=== PATIENT | female | born 1970 | race African-American/Black ===

== ENCOUNTER 2020-07-26 10:45 | Outpatient (REF) | payer OTHER, SELFPAY ==
--- NOTE | 2020-07-26 10:51 | MM_ITS ---
EXAMINATION: MM SCREENING DIGITAL BREAST TOMOSYNTHESIS, BILATERAL CLINICAL INFORMATION: Screening. Asymptomatic. The lifetime risk of breast cancer based on the Tyrer-Cuzick Model is 16%. COMPARISON: Mammography: 09/25/2018, 08/24/2017, 04/12/2014 TECHNIQUE: Digital breast tomosynthesis is performed in both the craniocaudal and mediolateral oblique views along with computer-aided detection (CAD). Synthesized 2D images are generated from the tomosynthesis. Additional right MLO view is provided. FINDINGS: The breasts are heterogeneously dense, which may obscure small masses (ACR BI-RADS breast composition Category c). There are no significant masses, abnormal calcifications, or other abnormalities. Parenchymal pattern is similar to prior studies. No significant changes. MM/MM tomosynthesis screening BI IMPRESSION: No mammographic evidence of malignancy. ASSESSMENT: BI-RADS 1: Negative RECOMMENDATION: Routine annual mammography screening. This patient's information was entered into a reminder system with a target due date for their next mammogram.
== END 2020-07-26 10:46 | disposition home or self-care (01) ==
LOC: HO.MAMMO 10:45
PROVIDERS: PCP Internal Medicine; Visit Provider Internal Medicine
DX: Z12.31 Encounter for screening mammogram for malignant neoplasm of breast (principal)
CPT/HCPCS: 77063; 77067

== ENCOUNTER 2020-08-17 13:23 | Outpatient (REF) | payer OTHER, SELFPAY ==
[2020-08-17 14:54] LABS: MANUAL DIFF FLAG NO
[2020-08-17 14:58] LABS: Basophils Percent Auto 0.8 % (0-2); Eosinophils Absolute Auto 0.1 X10*3/uL (0.0-0.4); Eosinophils Percent Auto 1.4 % (0-4); Hematocrit 33.7 % (37-47); Hemoglobin 9.9 g/dl (12.0-16.0); Imm Gran Abs Auto 0.01 X10*3/uL (0.00-0.03); Imm Gran Pct Auto 0.2 % (0.0-0.4); Lymphocytes Percent Auto 39.8 % (20-40); Mean Corpuscular HGB Conc 29.4 g/dl (31.0-35.0); Mean Corpuscular Hemoglobin 25.5 pg (27.0-33.0); Mean Corpuscular Volume 86.9 fL (80-98); Mean Platelet Volume 10.4 fL (9.4-12.3); Monocytes Absolute Auto 0.5 X10*3/uL (0.1-1.2); Monocytes Percent Auto 9.9 % (2-11); Neutrophils Absolute Auto 2.4 X10*3/uL (2.0-8.3); Neutrophils Percent Auto 47.9 % (45-73); Platelet Count 270 X10*3/uL (160-400); Red Blood Count 3.88 X10*6/uL (4.20-5.50); Red Cell Distribution Width 16.3 % (11.0-16.0)
[2020-08-17 15:22] LABS: Alanine Aminotransferase 20 U/L (0-31); Albumin Level 3.9 g/dL (3.5-5.0); Alkaline Phosphatase 91 U/L (39-117); Anion Gap 13 (12-20); Aspartate Amino Transferase 20 U/L (5-31); Bilirubin Total 0.4 mg/dL (0.0-1.0); Blood Urea Nitrogen 9 mg/dL (9-16); Carbon Dioxide 27 mmol/L (22-29); Chloride 105 mmol/L (96-108); Cholesterol 172 mg/dL; Estimated Glomerular Filt Rate > 60; Glucose Random 81 mg/dL (60-115); HDL Cholesterol 50 mg/dL; LDL Cholesterol Calculated 112 mg/dl; Potassium 4.7 mmol/L (3.3-5.1); Sodium 140 mmol/L (135-145); Total Protein 7.7 g/dL (6.5-8.0); Triglycerides 51 mg/dL
[2020-08-17 15:45] LABS: Thyroid Stimulating Hormone 0.74 uIU/mL (0.32-4.0)
== END 2020-08-17 13:24 | disposition home or self-care (01) ==
LOC: HO.LAB 13:23
PROVIDERS: PCP Internal Medicine; Visit Provider Internal Medicine
DX: Z00.01 Encounter for general adult medical examination with abnormal findings (principal); D25.1 Intramural leiomyoma of uterus; D50.9 Iron deficiency anemia, unspecified; Z68.34 Body mass index [BMI] 34.0-34.9, adult
CPT/HCPCS: 36415; 80053; 80061; 84443; 85025

== ENCOUNTER 2020-10-03 08:24 | Day surgery (SDC) | payer OTHER, SELFPAY ==
[2020-09-26 13:43] VITALS: BMI 33.5
--- NOTE | 2020-10-02 08:23 | P.CONAN_ITS ---
Documented by User: Mel Moura 10/02/20 08:24 HPI - Anesthesia Eval Consult details Narrative: 49yo F for Colonoscopy [facility] Past Medical History Medical History Anemia Surgical History Surgical History (Updated 10/03/20 @ 09:18 by Sena Ladd) H/O laparoscopy History of myomectomy Hx of tonsillectomy Social History Social History Are you a primary urgent care physician assistant to a significant other at home: No Do you presently have visiting nurse or other home services: No Smoking Status: Never smoker Use of substances other than those prescribed or required for medical reasons: No Have you been hit, kicked, punched, or otherwise hurt by someone within the past year? If so, by whom?: No Advance Directives: No Advance Directives Information Provided: No Advance Directives on File: No Recently lost weight without trying: No Meds Allergies Allergy/AdvReac Type Severity Reaction Status Date / Time No Known Allergies Allergy Unverified 09/26/20 13:41 Home Medications Medication Instructions Recorded Confirmed Last Taken Type ferrous sulfate 1 tab PO DAILY 09/26/20 09/26/20 Unknown History Exam Exam Date and Time: October 02, 2020 08 Height,Weight and Vital Signs: Height 5 ft 4 in Weight 88.451 kg Pertinent Lab Results Pertinent Lab Results: Laboratory Tests 08/17/20 08/17/20 14:07 14:07 WBC 5.0 Hgb 9.9 L Hct 33.7 L Plt Count 270 Sodium 140 Potassium 4.7 Chloride 105 Carbon Dioxide 27 BUN 9 Creatinine 0.67 Assessment and Plan Assessment Anesthesia Assessment: Chart Reviewed Documented by User: Sena Ladd 10/03/20 09:27 [facility] Past Medical History Medical History Anemia Family History Family history of problems with anesthesia: No Surgical History Surgical History (Updated 10/03/20 @ 09:18 by Sena Ladd) H/O laparoscopy History of myomectomy Hx of tonsillectomy History of Problems with Anesthesia: Yes (PONV) Social History Social History Are you a primary urgent care physician assistant to a significant other at home: No Do you presently have visiting nurse or other home services: No Smoking Status: Never smoker Use of substances other than those prescribed or required for medical reasons: No Have you been hit, kicked, punched, or otherwise hurt by someone within the past year? If so, by whom?: No Advance Directives: No Advance Directives Information Provided: No Advance Directives on File: No Recently lost weight without trying: No Meds Allergies Allergy/AdvReac Type Severity Reaction Status Date / Time No Known Allergies Allergy Unverified 09/26/20 13:41 Home Medications Medication Instructions Recorded Confirmed Last Taken Type ferrous sulfate 1 tab PO DAILY 09/26/20 09/26/20 Unknown History Exam Height,Weight and Vital Signs: Vital Signs Temp Pulse Resp BP Pulse Ox 10/03/20 09:17 97.3 F 77 15 125/90 H 99 Airway Mallampati Class: II TM Dist: >3cm Neck ROM: Full Heart: RRR Lungs: CTAB Assessment and Plan Assessment Anesthesia Assessment: Anesthesia Plan Discussed and Chart Reviewed Final Anesthetic Review NPO: Yes ASA Class: II Final Preanesthetic Review: No Changes in Pt Med Stat, Meds/Allgs Chart Reviewed, Consent Obtained/Reviewed and Anes Risks/Benef Reviewed Patient Risk: Low Procedure Risk: Low Assessment/Block/Sedation in SS: Assess/Block/Sedation-SS Anesthetic Plan Anesthetic Plan: MAC: Disposition: Standard PACU
[2020-10-03 09:11] VITALS: BMI 32.2
[2020-10-03 09:17] VITALS: BP 125/90; PULSE 77; RESP 15; TEMP 36.3; O2SAT 99
[2020-10-03] MEDS: Lactated Ringers 1,000 ML 100 ML IVCONT (09:20)
[2020-10-03 10:54] VITALS: BP 110/77; PULSE 74; RESP 14; TEMP 35.8; O2SAT 99
--- NOTE | 2020-10-03 10:54 | PM.OP ---
Brief Operative Note Date of Service: 10/03/20 Pre-op diagnosis: Screening Post-op diagnosis: other (Same, Diverticulosis, Internal hemorrhoids) Procedure: Colonoscopy to the cecum and TI Surgeon: Max Patel Anesthesia: MAC Estimated blood loss (mL): 0 Pathology: none sent Condition: stable Disposition: PACU
[2020-10-03 11:10] VITALS: BP 120/82; PULSE 65; RESP 16; TEMP 36.1; O2SAT 100
--- NOTE | 2020-10-03 13:48 | OP_ITS ---
SURGEON: Max Patel MD INDICATIONS: The patient presents for evaluation of colorectal cancer screening. Full consent has been obtained from her for this, including risks of bleeding and perforation. PREOPERATIVE DIAGNOSIS: Colorectal cancer screening. POSTOPERATIVE DIAGNOSIS: PROCEDURE PERFORMED: Colonoscopy to cecum and terminal ileum. ESTIMATED BLOOD LOSS: COMPLICATIONS: ANESTHESIA: Monitored anesthesia care. ASSISTANTS: SPECIMENS: POSTOPERATIVE DIAGNOSES: Colorectal cancer screening, mild diverticulosis, small internal hemorrhoids. DESCRIPTION OF PROCEDURE: The patient was placed in the left lateral decubitus position. The digital rectal exam revealed no abnormalities. The Olympus video pediatric colonoscope was entered into the rectum and advanced easily to the cecum. Once in the cecum, I did identify normal-appearing cecal pouch with appendiceal orifice and a normal-appearing ileocecal valve. The terminal ileum was cannulated and appeared normal. The scope was withdrawn back in the colon. The entire cecum and ileocecal valve appeared normal. The scope was slowly withdrawn assessing all mucosal surfaces carefully. Preparation was excellent. I did not visualize any sign of polyps, colitis, nor angiodysplasia. There was a mild amount of sigmoid diverticulosis. In the rectum, scope was retroflexed visualizing internal hemorrhoids, but no other pathology. The rectal mucosa appeared normal. The scope was straightened out and withdrawn from the patient. She tolerated the procedure well and was returned to recovery area in stable condition. IMPRESSION: 1. Mild sigmoid diverticulosis. 2. Internal hemorrhoids. PLAN: Given the patient's negative exam and negative family history, I would recommend a repeat colonoscopy in 10 years for further screening. She was advised to resume her iron today for her anemia. MD ASIA Mensah/AISHA / [phone]
== END 2020-10-03 12:02 | disposition home or self-care (01) ==
PROVIDERS: PCP Internal Medicine; Visit Provider Internal Medicine
PROC: 0DJD8ZZ Inspection of Lower Intestinal Tract, Via Natural or Artificial Opening Endoscopic (ICD-10-PCS; CPT 45378; principal; 2020-10-03 09:30)
DX: Z12.11 Encounter for screening for malignant neoplasm of colon (principal); D50.9 Iron deficiency anemia, unspecified; K57.30 Diverticulosis of large intestine without perforation or abscess without bleeding; K64.8 Other hemorrhoids; Z79.899 Other long term (current) drug therapy
CPT/HCPCS: 45378; J2405; J2765

== ENCOUNTER 2021-01-29 11:18 | Outpatient (REF) | payer OTHER, SELFPAY ==
[2021-01-29 11:41] LABS: MANUAL DIFF FLAG NO
[2021-01-29 11:49] LABS: Basophils Percent Auto 0.9 % (0-2); Eosinophils Absolute Auto 0.1 X10*3/uL (0.0-0.4); Eosinophils Percent Auto 2.3 % (0-4); Hemoglobin 9.8 g/dl (12.0-16.0); Imm Gran Abs Auto 0.01 X10*3/uL (0.00-0.03); Imm Gran Pct Auto 0.3 % (0.0-0.4); Lymphocytes Absolute Auto 1.3 X10*3/uL (1.2-4.9); Lymphocytes Percent Auto 38.3 % (20-40); Mean Corpuscular HGB Conc 29.7 g/dl (31.0-35.0); Mean Corpuscular Hemoglobin 25.7 pg (27.0-33.0); Mean Corpuscular Volume 86.6 fL (80-98); Mean Platelet Volume 10.1 fL (9.4-12.3); Monocytes Absolute Auto 0.4 X10*3/uL (0.1-1.2); Monocytes Percent Auto 10.1 % (2-11); Neutrophils Absolute Auto 1.7 X10*3/uL (2.0-8.3); Neutrophils Percent Auto 48.1 % (45-73); Platelet Count 230 X10*3/uL (160-400); Red Blood Count 3.81 X10*6/uL (4.20-5.50); Red Cell Distribution Width 17.2 % (11.0-16.0); White Blood Count 3.5 X10*3/uL (4.8-10.8)
[2021-01-29 12:41] LABS: Ferritin 6 ng/mL (10-250)
== END 2021-01-29 11:19 | disposition home or self-care (01) ==
LOC: HO.LAB 11:18
PROVIDERS: PCP Internal Medicine; Visit Provider Internal Medicine
DX: Z00.01 Encounter for general adult medical examination with abnormal findings (principal); D25.1 Intramural leiomyoma of uterus; D50.9 Iron deficiency anemia, unspecified
CPT/HCPCS: 36415; 82728; 85025

== ENCOUNTER 2021-08-06 09:42 | Outpatient (REF) | payer OTHER, SELFPAY ==
[2021-08-06 09:59] LABS: MANUAL DIFF FLAG NO
[2021-08-06 10:19] LABS: Basophils Percent Auto 0.4 % (0-2); Eosinophils Absolute Auto 0.1 X10*3/uL (0.0-0.4); Eosinophils Percent Auto 1.8 % (0-4); Hematocrit 36.2 % (37.0-47.0); Hemoglobin 10.5 g/dl (12.0-16.0); Imm Gran Abs Auto 0.01 X10*3/uL (0.00-0.03); Imm Gran Pct Auto 0.2 % (0.0-0.4); Lymphocytes Absolute Auto 1.4 X10*3/uL (1.2-4.9); Lymphocytes Percent Auto 31.5 % (20-40); Mean Corpuscular Volume 86.2 fL (80.0-98.0); Mean Platelet Volume 10.2 fL (9.4-12.3); Monocytes Absolute Auto 0.4 X10*3/uL (0.1-1.2); Monocytes Percent Auto 8.9 % (2-11); Neutrophils Absolute Auto 2.6 x10*3/uL (2.0-8.3); Neutrophils Percent Auto 57.2 % (45-73); Platelet Count 293 X10*3/uL (160-400); Red Cell Distribution Width 15.9 % (11.0-16.0); White Blood Count 4.5 X10*3/uL (4.8-10.8)
[2021-08-06 10:53] LABS: Alanine Aminotransferase 15 U/L (0-31); Albumin Level 4.1 g/dL (3.5-5.0); Alkaline Phosphatase 121 U/L (39-117); Anion Gap 12 (12-20); Aspartate Amino Transferase 18 U/L (5-31); Bilirubin Total 0.5 mg/dL (0.0-1.0); Blood Urea Nitrogen 12 mg/dL (9-16); Calcium 10.2 mg/dL (8.4-10.2); Carbon Dioxide 26 mmol/L (22-29); Chloride 106 mmol/L (96-108); Cholesterol 187 mg/dL; Estimated Glomerular Filt Rate > 60; Glucose Random 80 mg/dL (60-115); HDL Cholesterol 50 mg/dL; LDL Cholesterol Calculated 126 mg/dl; Potassium 4.2 mmol/L (3.3-5.1); Sodium 140 mmol/L (135-145); Total Protein 8.3 g/dL (6.5-8.0); Triglycerides 59 mg/dL
[2021-08-06 11:04] LABS: Ferritin 5 ng/mL (10-250)
[2021-08-07 17:31] LABS: Follicle Stimulating Hormone 75.8 mIU/mL
== END 2021-08-06 09:43 | disposition home or self-care (01) ==
LOC: HO.LAB 09:42
PROVIDERS: PCP Internal Medicine; Visit Provider Internal Medicine
DX: D25.1 Intramural leiomyoma of uterus (principal); D50.9 Iron deficiency anemia, unspecified; N95.1 Menopausal and female climacteric states
CPT/HCPCS: 36415; 80053; 80061; 82728; 83001; 85025

== ENCOUNTER 2021-09-12 09:30 | Outpatient (REF) | payer OTHER, SELFPAY ==
--- NOTE | ~2021-09-12 | MM_ITS ---
EXAMINATION: MM SCREENING DIGITAL BREAST TOMOSYNTHESIS, BILATERAL CLINICAL INFORMATION: Screening. Asymptomatic. The lifetime risk of breast cancer based on the Tyrer-Cuzick Model is 16%. COMPARISON: Mammography: 07/26/2020, 09/25/2018, 08/24/2017 TECHNIQUE: Digital breast tomosynthesis is performed in both the craniocaudal and mediolateral oblique views along with computer-aided detection (CAD). Synthesized 2D images are generated from the tomosynthesis. FINDINGS: The breasts are heterogeneously dense, which may obscure small masses (ACR BI-RADS breast composition Category c). There is fine fibronodular parenchymal pattern similar to prior studies no developing density. No architectural abnormality. There are no significant masses, abnormal calcifications, or other abnormalities. No significant changes. MM/MM tomosynthesis screening BI IMPRESSION: No mammographic evidence of malignancy. ASSESSMENT: BI-RADS 1: Negative RECOMMENDATION: Routine annual mammography screening. This patient's information was entered into a reminder system with a target due date for their next mammogram.
== END 2021-09-12 09:31 | disposition home or self-care (01) ==
LOC: HO.MAMMO 09:30
PROVIDERS: PCP Internal Medicine; Visit Provider Internal Medicine
DX: Z12.31 Encounter for screening mammogram for malignant neoplasm of breast (principal)
CPT/HCPCS: 77063; 77067

== ENCOUNTER 2021-12-02 11:31 | Outpatient (REF) | payer OTHER, SELFPAY ==
[2021-12-02 12:02] LABS: MANUAL DIFF FLAG NO
[2021-12-02 12:27] LABS: Basophils Percent Auto 0.2 % (0-2); Eosinophils Absolute Auto 0.1 X10*3/uL (0.0-0.4); Eosinophils Percent Auto 1.8 % (0-4); Hematocrit 37.9 % (37.0-47.0); Hemoglobin 11.5 g/dl (12.0-16.0); Imm Gran Abs Auto 0.01 X10*3/uL (0.00-0.03); Imm Gran Pct Auto 0.2 % (0.0-0.4); Lymphocytes Absolute Auto 1.6 X10*3/uL (1.2-4.9); Lymphocytes Percent Auto 34.4 % (20-40); Mean Corpuscular HGB Conc 30.3 g/dl (31.0-35.0); Mean Corpuscular Volume 92.2 fL (80.0-98.0); Mean Platelet Volume 10.4 fL (9.4-12.3); Monocytes Absolute Auto 0.4 X10*3/uL (0.1-1.2); Neutrophils Absolute Auto 2.5 x10*3/uL (2.0-8.3); Neutrophils Percent Auto 54.4 % (45-73); Platelet Count 197 X10*3/uL (160-400); Red Blood Count 4.11 X10*6/uL (4.20-5.50); Red Cell Distribution Width 15.9 % (11.0-16.0); White Blood Count 4.6 X10*3/uL (4.8-10.8)
[2021-12-02 12:44] LABS: Alanine Aminotransferase 19 U/L (0-31); Albumin Level 3.8 g/dL (3.5-5.0); Alkaline Phosphatase 108 U/L (39-117); Anion Gap 10 (12-20); Aspartate Amino Transferase 17 U/L (5-31); Bilirubin Total 0.5 mg/dL (0.0-1.0); Blood Urea Nitrogen 10 mg/dL (9-16); Calcium 9.4 mg/dL (8.4-10.2); Carbon Dioxide 27 mmol/L (22-29); Chloride 109 mmol/L (96-108); Estimated Glomerular Filt Rate > 60; Glucose Random 86 mg/dL (60-115); Potassium 4.4 mmol/L (3.3-5.1); Sodium 142 mmol/L (135-145); Total Protein 7.7 g/dL (6.5-8.0)
[2021-12-02 13:06] LABS: Vitamin D 25-OH Total 12.9 ng/mL (>30)
[2021-12-04 13:11] LABS: Calcium (PTHI) 9.4 mg/dL (8.6-10.4); PTHI 111 pg/mL (16-77)
== END 2021-12-02 11:32 | disposition home or self-care (01) ==
LOC: HO.LAB 11:31
PROVIDERS: PCP Internal Medicine; Visit Provider Internal Medicine
DX: Z00.00 Encounter for general adult medical examination without abnormal findings (principal); D25.9 Leiomyoma of uterus, unspecified; D50.9 Iron deficiency anemia, unspecified; E83.52 Hypercalcemia
CPT/HCPCS: 36415; 80053; 82306; 83970; 85025

== ENCOUNTER 2022-04-30 05:10 | Outpatient (REF) | payer OTHER, SELFPAY | END 2022-04-30 05:11 | disposition home or self-care (01) | LOC: HO.HOSX 05:10 | PROVIDERS: Visit Provider Physician Assistant | DX: Z13.89 Encounter for screening for other disorder (principal) ==

== ENCOUNTER 2022-08-14 10:31 | Outpatient (REF) | payer OTHER, SELFPAY ==
[2022-08-14 10:43] LABS: MANUAL DIFF FLAG NO
[2022-08-14 11:03] LABS: Basophils Percent Auto 0.5 % (0-2); Eosinophils Absolute Auto 0.1 X10*3/uL (0.0-0.4); Eosinophils Percent Auto 2.3 % (0-4); Hematocrit 42.7 % (37.0-47.0); Hemoglobin 13.3 g/dl (12.0-16.0); Imm Gran Abs Auto 0.01 X10*3/uL (0.00-0.03); Imm Gran Pct Auto 0.3 % (0.0-0.4); Lymphocytes Absolute Auto 1.5 X10*3/uL (1.2-4.9); Lymphocytes Percent Auto 37.6 % (20-40); Mean Corpuscular HGB Conc 31.1 g/dl (31.0-35.0); Mean Corpuscular Hemoglobin 28.5 pg (27.0-33.0); Mean Corpuscular Volume 91.6 fL (80.0-98.0); Mean Platelet Volume 9.9 fL (9.4-12.3); Monocytes Absolute Auto 0.3 X10*3/uL (0.1-1.2); Monocytes Percent Auto 8.4 % (2-11); Neutrophils Percent Auto 50.9 % (45-73); Platelet Count 224 X10*3/uL (160-400); Red Blood Count 4.66 X10*6/uL (4.20-5.50); Red Cell Distribution Width 13.4 % (11.0-16.0); White Blood Count 3.9 X10*3/uL (4.8-10.8)
[2022-08-14 11:25] LABS: Alanine Aminotransferase 16 U/L (0-31); Alkaline Phosphatase 123 U/L (39-117); Anion Gap 9 (12-20); Aspartate Amino Transferase 19 U/L (5-31); Bilirubin Total 0.6 mg/dL (0.0-1.0); Blood Urea Nitrogen 13 mg/dL (9-16); Calcium 9.7 mg/dL (8.4-10.2); Carbon Dioxide 27 mmol/L (22-29); Chloride 110 mmol/L (96-108); Cholesterol 204 mg/dL; Estimated Glomerular Filt Rate > 60; Glucose Random 84 mg/dL (60-115); HDL Cholesterol 44 mg/dL; LDL Cholesterol Calculated 151 mg/dl; Potassium 4.3 mmol/L (3.3-5.1); Sodium 142 mmol/L (135-145); Total Protein 7.8 g/dL (6.5-8.0); Triglycerides 46 mg/dL
[2022-08-14 11:44] LABS: Vitamin D 25-OH Total 7.2 ng/mL (>30)
== END 2022-08-14 10:32 | disposition home or self-care (01) ==
LOC: HO.LAB 10:31
PROVIDERS: PCP Internal Medicine; Visit Provider Internal Medicine
DX: D50.8 Other iron deficiency anemias (principal); E21.1 Secondary hyperparathyroidism, not elsewhere classified; E55.9 Vitamin D deficiency, unspecified; I10 Essential (primary) hypertension
CPT/HCPCS: 36415; 80053; 80061; 82306; 85025

== ENCOUNTER 2022-12-24 14:27 | Outpatient (REF) | payer OTHER, SELFPAY ==
[2022-12-24 14:44] LABS: MANUAL DIFF FLAG NO
[2022-12-24 14:52] LABS: Basophils Percent Auto 0.4 % (0-2); Eosinophils Absolute Auto 0.1 X10*3/uL (0.0-0.4); Eosinophils Percent Auto 1.8 % (0-4); Hematocrit 41.3 % (37.0-47.0); Hemoglobin 12.9 g/dl (12.0-16.0); Imm Gran Abs Auto 0.01 X10*3/uL (0.00-0.03); Imm Gran Pct Auto 0.2 % (0.0-0.4); Lymphocytes Absolute Auto 1.7 X10*3/uL (1.2-4.9); Lymphocytes Percent Auto 37.9 % (20-40); Mean Corpuscular HGB Conc 31.2 g/dl (31.0-35.0); Mean Corpuscular Hemoglobin 29.1 pg (27.0-33.0); Mean Corpuscular Volume 93.2 fL (80.0-98.0); Mean Platelet Volume 10.5 fL (9.4-12.3); Monocytes Absolute Auto 0.3 X10*3/uL (0.1-1.2); Monocytes Percent Auto 6.8 % (2-11); Neutrophils Absolute Auto 2.4 x10*3/uL (2.0-8.3); Neutrophils Percent Auto 52.9 % (45-73); Platelet Count 191 X10*3/uL (160-400); Red Blood Count 4.43 X10*6/uL (4.20-5.50); Red Cell Distribution Width 13.8 % (11.0-16.0); White Blood Count 4.6 X10*3/uL (4.8-10.8)
[2022-12-24 15:38] LABS: Alanine Aminotransferase 14 U/L (0-31); Albumin Level 3.9 g/dL (3.5-5.0); Alkaline Phosphatase 120 U/L (39-117); Anion Gap 10 (12-20); Aspartate Amino Transferase 17 U/L (5-31); Bilirubin Total 0.9 mg/dL (0.0-1.0); Blood Urea Nitrogen 13 mg/dL (9-16); Calcium 9.9 mg/dL (8.4-10.2); Carbon Dioxide 26 mmol/L (22-29); Chloride 109 mmol/L (96-108); Cholesterol 192 mg/dL; Estimated Glomerular Filt Rate > 60; Glucose Random 79 mg/dL (60-115); HDL Cholesterol 52 mg/dL; LDL Cholesterol Calculated 126 mg/dl; Sodium 141 mmol/L (135-145); Total Protein 8.2 g/dL (6.5-8.0); Triglycerides 70 mg/dL
[2022-12-24 15:53] LABS: Ferritin 48 ng/mL (10-250)
[2022-12-26 18:49] LABS: Follicle Stimulating Hormone 69.1 mIU/mL
== END 2022-12-24 14:28 | disposition home or self-care (01) ==
LOC: HO.LAB 14:27
PROVIDERS: PCP Internal Medicine; Visit Provider Internal Medicine
DX: Z00.00 Encounter for general adult medical examination without abnormal findings (principal); E21.1 Secondary hyperparathyroidism, not elsewhere classified; E78.00 Pure hypercholesterolemia, unspecified; I10 Essential (primary) hypertension; N92.1 Excessive and frequent menstruation with irregular cycle
CPT/HCPCS: 36415; 80053; 80061; 82728; 83001; 85025

== ENCOUNTER 2022-12-25 10:53 | Outpatient (REF) | payer OTHER, SELFPAY ==
--- NOTE | ~2022-12-25 | MM_ITS ---
EXAMINATION: MM SCREENING DIGITAL BREAST TOMOSYNTHESIS, BILATERAL CLINICAL INFORMATION: Screening. Asymptomatic. The lifetime risk of breast cancer based on the Tyrer-Cuzick Model is 15%. COMPARISON: Mammography: 09/12/2021, 07/26/2020, 09/25/2018 TECHNIQUE: Digital breast tomosynthesis is performed in both the craniocaudal and mediolateral oblique views along with computer-aided detection (CAD). Synthesized 2D images are generated from the tomosynthesis. FINDINGS: The breasts are heterogeneously dense, which may obscure small masses (ACR BI-RADS breast composition Category c). There are no significant masses, abnormal calcifications, or other abnormalities. Fibronodular parenchymal pattern is similar to prior studies. No developing density or architectural abnormality. The axilla and skin contours are unremarkable. No significant changes from prior studies. MM/MM tomosynthesis screening BI IMPRESSION: No mammographic evidence of malignancy. ASSESSMENT: BI-RADS 1: Negative RECOMMENDATION: Routine annual mammography screening. This patient's information was entered into a reminder system with a target due date for their next mammogram.
== END 2022-12-25 10:54 | disposition home or self-care (01) ==
LOC: HO.MAMMO 10:53
PROVIDERS: PCP Internal Medicine; Visit Provider Internal Medicine
DX: Z12.31 Encounter for screening mammogram for malignant neoplasm of breast (principal)
CPT/HCPCS: 77063; 77067

== ENCOUNTER 2023-01-01 09:20 | Outpatient (REF) | payer OTHER, SELFPAY | END 2023-01-01 09:21 | disposition home or self-care (01) | LOC: HO.HOSX 09:20 | PROVIDERS: Visit Provider Orthopaedic Surgery | DX: M17.11 Unilateral primary osteoarthritis, right knee (principal) | CPT/HCPCS: 73560; 73565; 99202 ==

== ENCOUNTER 2023-04-16 11:18 | Outpatient (AMB) | payer OTHER, SELFPAY ==
--- NOTE | 2023-04-16 11:22 | MHC.OFFVIS ---
Intake Vital Signs 04/16/23 11:37 Height 5 ft 4 in Intake Visit Reasons: OV-Rt Knee Pain Intake Note: Peyton is a 52 year old female who presents today for a follow up of her right knee OA. At her last visit in December of 2022 injections vs surgery was discussed. She was to continue working on weight management and presents today to further discuss treatment options. Allergies No Known Allergies Allergy (Unverified 04/16/23 11:23) Medication List - Last Reconciled 04/16/23 by Laine Baumann RN ferrous sulfate 1 tab PO DAILY HPI OV-Rt Knee Pain HPI Details Peyton is a 52 year old woman who returns to discuss her right knee OA. She continues to have pain with daily activity, worse with prolonged standing, stairs, or climbing a ladder. She finds some short-term relief from rest and has been working on weight management. She is no longer able to be as active as she was before and denies any prior treatment at her last appointment. She would like to discuss treatment options today, including a brace. She says she feels bow-legged when she walks and most of her pain is in the medial aspect of her knees. She works [employer] Medical History (Updated 01/01/23 @ 10:35 by Miki Duran) Anemia Surgical History (Updated 10/03/20 @ 09:18 by Sena Ladd MD) H/O laparoscopy History of myomectomy Hx of tonsillectomy Social History (Updated 01/01/23 @ 10:18 by Jolene Castellano CMA) Are you a primary healthcare or medical to a significant other at home: No Do you presently have visiting nurse or other home services: No Patient Tobacco Use Status: Never used Tobacco Current occupational status: employed Current occupation: Merchandise Review of Systems Const All systems reviewed & are unremarkable except as noted in HPI and below Physical Exam Const General: no acute distress, alert and awake Orientation/consciousness: patient oriented x3 HEENT Head: Yes normocephalic and Yes atraumatic Eyes EOM: EOMs intact bilaterally Resp Effort & Inspection: normal respiratory effort and able to speak in complete sentences Cardio Jugular venous distension: no JVD Skin General skin exam: turgor normal Rashes: no rashes Neuro General: patient oriented x3 Extrem Other: Right Knee: TTP medial compartment Varus alignment Excellent ROM No gait antalgia Psych Appearance: grossly normal Affect: normal affect Attitude: cooperative Results Reviewed Results Reviewed: I personally reviewed relevant radiographs. Moderate-severe right knee osteoarthritis Assessment & Plan Assessment & Plan (1) Osteoarthritis of right knee: Code(s): M17.11 - Unilateral primary osteoarthritis, right knee Plan: This is a 52 year old woman with right knee OA. She has pain with daily activity, worse with prolonged standing, stairs, or climbing a ladder. She finds some short-term relief from rest but she is limited in her ADLs and feels limited in her work activities. I discussed her diagnosis and treatment options. I ordered a medial unloading brace and recommend she remain active as tolerated. She is hesitant to undergo injections at this time. She can follow up prn. Plan Scribed for Rick Hanson MD by Miki Duran, medical record consultant, on 04/16/23 at 11:40 AM, EST. Coding Level of Care Code Est Pt Level 4 (66577) Diagnoses Osteoarthritis of right knee M17.11
== END 2023-04-16 11:48 | disposition home or self-care (01) ==
PROVIDERS: PCP Internal Medicine; Visit Provider Orthopaedic Surgery
DX: M17.11 Unilateral primary osteoarthritis, right knee (principal)
CPT/HCPCS: 99213

== ENCOUNTER → 2023-04-16 11:18 | Outpatient (BNVA) | payer OTHER, SELFPAY | PROVIDERS: PCP Internal Medicine; Visit Provider Orthopaedic Surgery | DX: M17.11 Unilateral primary osteoarthritis, right knee (principal) | CPT/HCPCS: 99212 ==

== ENCOUNTER 2023-08-18 09:19 | Outpatient (REF) | payer MEDICAID, SELFPAY ==
[2023-08-18 11:16] LABS: Parathyroid Hormone Intact 118.5 pg/mL (8.7-77.1)
[2023-08-18 11:32] LABS: Alanine Aminotransferase 19 U/L (0-31); Alkaline Phosphatase 125 U/L (39-117); Anion Gap 11 (12-20); Aspartate Amino Transferase 18 U/L (5-31); Bilirubin Total 0.5 mg/dL (0.0-1.0); Blood Urea Nitrogen 13 mg/dL (9-16); Calcium 9.9 mg/dL (8.4-10.2); Carbon Dioxide 27 mmol/L (22-29); Chloride 106 mmol/L (96-108); Cholesterol 186 mg/dL (<200); Estimated Glomerular Filt Rate > 60; Glucose Random 88 mg/dL (60-115); HDL Cholesterol 48 mg/dL (>40); LDL Cholesterol Calculated 123 mg/dL (<100); Potassium 4.2 mmol/L (3.3-5.1); Sodium 140 mmol/L (135-145); Total Protein 8.1 g/dL (6.5-8.0); Triglycerides 78 mg/dL (<150)
[2023-08-18 11:36] LABS: Thyroid Stimulating Hormone 1.18 uIU/mL (0.32-4.0)
== END 2023-08-18 09:20 | disposition home or self-care (01) ==
LOC: HO.LAB 09:19
PROVIDERS: PCP Internal Medicine; Visit Provider Internal Medicine
DX: E78.00 Pure hypercholesterolemia, unspecified (principal); E83.52 Hypercalcemia; I10 Essential (primary) hypertension; N64.4 Mastodynia; N95.1 Menopausal and female climacteric states
CPT/HCPCS: 36415; 80053; 80061; 83970; 84443

== ENCOUNTER → 2023-12-31 11:15 | Outpatient (BNV) | payer OTHER, SELFPAY | PROVIDERS: PCP Internal Medicine; Visit Provider Radiology Diagnostic Radiology | DX: Z12.31 Encounter for screening mammogram for malignant neoplasm of breast (principal) | CPT/HCPCS: 77063; 77067 ==

== ENCOUNTER 2023-12-31 11:28 | Outpatient (REF) | payer OTHER, SELFPAY | END 2023-12-31 11:29 | disposition home or self-care (01) | LOC: HO.MAMMO 11:28 | PROVIDERS: PCP Internal Medicine; Visit Provider Internal Medicine | DX: Z12.31 Encounter for screening mammogram for malignant neoplasm of breast (principal) | CPT/HCPCS: 77063; 77067 ==

== ENCOUNTER 2024-01-06 10:20 | Outpatient (REF) | payer OTHER, SELFPAY ==
[2024-01-06 11:15] LABS: Calcium 9.8 mg/dL (8.4-10.2); Cholesterol 202 mg/dL (<200); HDL Cholesterol 48 mg/dL (>40); LDL Cholesterol Calculated 142 mg/dL (<100); Parathyroid Hormone Intact 136.1 pg/mL (8.7-77.1); Phosphorus 2.6 mg/dL (2.7-4.5); Triglycerides 62 mg/dL (<150)
== END 2024-01-06 10:21 | disposition home or self-care (01) ==
LOC: HO.LAB 10:20
PROVIDERS: PCP Internal Medicine; Visit Provider Internal Medicine
DX: Z00.00 Encounter for general adult medical examination without abnormal findings (principal); E21.2 Other hyperparathyroidism; E78.00 Pure hypercholesterolemia, unspecified; I10 Essential (primary) hypertension
CPT/HCPCS: 36415; 80061; 82306; 82310; 83970; 84100

== ENCOUNTER 2024-05-02 11:23 | Outpatient (REF) | payer MEDICAID, SELFPAY ==
[2024-05-02 13:11] LABS: Alanine Aminotransferase 16 U/L (0-31); Alkaline Phosphatase 123 U/L (39-117); Anion Gap 9 (12-20); Aspartate Amino Transferase 21 U/L (5-31); Bilirubin Total 0.5 mg/dL (0.0-1.0); Blood Urea Nitrogen 11 mg/dL (9-16); Calcium 10.3 mg/dL (8.4-10.2); Carbon Dioxide 30 mmol/L (22-29); Chloride 105 mmol/L (96-108); Cholesterol 202 mg/dL (<200); Estimated Glomerular Filt Rate > 60; Glucose Random 87 mg/dL (60-115); HDL Cholesterol 48 mg/dL (>40); LDL Cholesterol Calculated 139 mg/dL (<100); Potassium 4.2 mmol/L (3.3-5.1); Sodium 140 mmol/L (135-145); Triglycerides 77 mg/dL (<150)
[2024-05-02 13:29] LABS: Vitamin D 25-OH Total 39.1 ng/mL (>30)
== END 2024-05-02 11:24 | disposition home or self-care (01) ==
LOC: HO.LAB 11:23
PROVIDERS: PCP Internal Medicine; Visit Provider Internal Medicine
DX: I10 Essential (primary) hypertension (principal); E78.00 Pure hypercholesterolemia, unspecified; E55.9 Vitamin D deficiency, unspecified; E21.2 Other hyperparathyroidism
CPT/HCPCS: 36415; 80053; 80061; 82306

== ENCOUNTER → 2024-05-30 08:18 | Outpatient (REF) | payer MEDICAID, SELFPAY | LOC: HO.NUCMED 08:18 | PROVIDERS: PCP Internal Medicine; Visit Provider Internal Medicine | DX: Z13.89 Encounter for screening for other disorder (principal) ==

== ENCOUNTER → 2024-10-17 10:58 | Outpatient (REF) | payer MEDICAID, SELFPAY ==
--- NOTE | ~2024-10-17 | NM_ITS ---
EXAMINATION: NM PARATHYROID SPECT AND CT HISTORY: HYPERPARATHYROIDISM. TECHNIQUE: A parathyroid imaging study was performed following the intravenous administration of 30 mCi technetium 99m-sestamibi. Images were obtained 20 minutes and 2 hours after injection of the radiopharmaceutical. SPECT imaging of the neck was performed at 2 hours. COMPARISON: There are no prior studies for comparison. FINDINGS: Initial images demonstrate activity within both thyroid lobes and in the salivary glands. Delayed images demonstrate washout from the thyroid gland. No foci of abnormal increased uptake are seen in the neck or superior mediastinum to suggest a parathyroid adenoma. NM/NM parathyroid SPECT w CT IMPRESSION: No scintigraphic evidence of a parathyroid adenoma. Electronically signed by: Max Mendez MD 10/17/2024 02:56 PM EDT
--- OUTSIDE RECORDS SUMMARY | 2024-10-17 13:10 | XMS_ITS | Encounter Summary ---
Author Organization [employer] Address [address] [place] [address] [address] [place] [address] Care Team Providers Care Oil Treater Name Role Phone Unavailable Primary Care Provider Unavailabl e Encounter Details Date Type Department Care Team (Latest Contact Info) Description 04/11/2019 Abstract [facility] CONVERSIONS Dental, Provider, DDS Social History Tobacco Use Types Packs/Day Years Used Date Smoking Tobacco: Never Assessed Comments Unknown Sex and Gender Information Value Date Recorded Sex Assigned at Female 05/12/2022 10:36 AM EDT Legal Sex Female 10:36 AM EDT Gender Identity Female 05/12/2022 10:36 AM EDT Sexual Orientation Choose not to disclose 2021 10:36 AM EDT documented as of this encounter Plan of Treatment Not on file documented as of this encounter Visit Diagnoses Not on filedocumented in this encounter
--- OUTSIDE RECORDS SUMMARY | 2024-10-17 13:10 | XMS_ITS | Clinical Summary ---
Author Organization [employer] Address [address] [place] [address] [address] [place] [address] Care Team Providers Care Molder Foam Rubber Name Role Phone Unavailable Primary Care Provider Unavailabl e Social History Tobacco Use Types Packs/Day Years Used Date Smoking Tobacco: Never Assessed Comments Unknown Sex and Gender Information Value Date Recorded Sex Assigned at Female 05/12/2022 10:36 AM EDT Legal Sex Female 10:36 AM EDT Gender Identity Female 05/12/2022 10:36 AM EDT Sexual Orientation Choose not to disclose 2021 10:36 AM EDT Last Filed Vital Signs Vital Sign Reading Time Taken Comments Blood Pressure 138/100 09/12/2019 12:03 AM EST Pulse 70 09/12/2019 12:03 AM EST Temperature - - Respiratory Rate - - Oxygen Saturation - - Inhaled Oxygen Concentration - - Weight - - Height - - Body Mass Index - - Plan of Treatment Health Maintenance Due Date Last Done Comments CT Colonography 1969 Colonoscopy 1969 Colorectal Cancer Screening 1969 Depression Screening 1969 FIT DNA/Cologuard 1969 FIT 1969 FOBT 1969 Sigmoidoscopy 1969 Alcohol/Substance Use Screening 1981 Tobacco Screening 1981 DTaP/Tdap/Td Vaccines (1 - Tdap) 1988 Hepatitis B Vaccines (1 of 3 - 19+ 3-dose series) 1988 Pap Smear 1990 Cervical Cancer Screening 11/27/1999 HPV/Cotest 11/27/1999 Mammogram 2009 Pneumococcal Vaccine: 50+ Ye ars (1 of 1 - PCV) 11/27/2019 Zoster Vaccines (1 of 2) 11/27/2019 COVID-19 Vaccine (2023-2 5 season) 2024 Influenza Vaccine (#1) 2024 RSV Patients and Pa tients Aged 60 years or older (1 - 1-dose 75+ series) 2044 HIB Vaccines Aged Out No longer eligi ble based on patient's age to complete this topic HPV Vaccines Aged Out No longer eligi ble based on patient's age to complete this topic Hepatitis A Vaccines Aged Out No long er eligible based on patient's age to complete this topic IPV Vaccines Aged Out No longer eligi ble based on patient's age to complete this topic Meningococcal Vaccine Aged Out No jaaj margot eligible based on patient's age to complete this topic Pneumococcal Vaccine: Pediat rics (0 to 5 Years) and At-Risk Patients (6 to 49) Years) Aged Out No longer eligible b ased on patient's age to complete this topic RSV under 20 months Aged Out No longe r eligible based on patient's age to complete this topic Rotavirus Vaccines Aged Out No longer eligible based on patient's age to complete this topic
--- OUTSIDE RECORDS SUMMARY | 2024-10-17 13:10 | XMS_ITS | Patient Health Record ---
Author Organization [facility] Address [address] [place] [address] Care Team Providers Care Electrician Sound Name Role Phone Chel Valdez Primary Care Provider Max Mcdonald Unavailable [phone] Reason For Referral No Information Medications Medication SIG (Take, Route, Frequency, Duration) Notes Start Date End Date Status iron Active Immunizations Vaccine Route Administration Date Status Comme nts Influenza Unknown 09/12/2020 Refused Social History Tobacco Use: Social History Observation Description Date Details (start date - stop date) Never Smoker NA - NA Tobacco Use/Smoking Question Answer Notes Patient is a nonsmoker Alcohol Screen Question Answer Notes Did you have a drink contain ing alcohol in the past year? Yes How often did you have a dri nk containing alcohol in the past year? Never (0 point) How many drinks did you have on a typical day when you were drinking in the past year? 1 or 2 drinks (0 point) How often did you have 6 or more drinks on one occasion in the past year? Never (0 point) Points 0 Interpretation Negative Section Notes: Nonsmoker; no sig alcohol Problems Problem Type SNOMED Code ICD Code Onset Dates Problem Status W/U Status Risk Notes Problem Screening for malignant neoplasm of colon (777932301) Encounter for screening for malignant neoplasm of colon (Z12.11) Active confirmed Problem Iron deficiency anemia (43567787) Iron deficiency anemia (D50.9) Active confirmed Plan Of Treatment Future Test Test Name Order Date COLONOSCOPY 09/12/2020 Insurance Providers Payer Name Payer Address Payer Phone Subscriber Number Group Number Insured Name Patient Relationship to Insured Coverage Start Date Coverage End Date [facility] [address] [address] [place], [place] [id number] MARVA BLANCO Self - patient is the insured Medical (General) History Medical History History ICD Code Denies [place],DM,CVA,Lung disease,renal dise ase Anemia--reports neg. Hemoccu lt cards in the past. Her ferritin was only 5 in February of 2020 and her hemoglobin was 9.9 with a normal MCV in August of 2020. Surgical History Surgery Date(Month/Year) Uterine myomectomy 2011 Tonsillectomy
--- OUTSIDE RECORDS SUMMARY | 2024-10-17 13:10 | XMS_ITS | Encounter Summary ---
Author Organization [employer] Address [address] [place] [address] [address] [address] Care Team Providers Care Encephalographer Name Role Phone Unavailable Primary Care Provider Unavailabl e Encounter Details Date Type Department Care Team (Latest Contact Info) Description 09/14/2020 Abstract [facility] CONVERSIONS Dental, Provider, DDS Social History Tobacco [...]
[2024-10-17 14:01] LABS: Alanine Aminotransferase 23 U/L (0-31); Alkaline Phosphatase 128 U/L (39-117); Anion Gap 11 (12-20); Aspartate Amino Transferase 27 U/L (5-31); Bilirubin Total 0.7 mg/dL (0.0-1.0); Blood Urea Nitrogen 13 mg/dL (9-16); Calcium 9.9 mg/dL (8.4-10.2); Carbon Dioxide 27 mmol/L (22-29); Chloride 106 mmol/L (96-108); Cholesterol 123 mg/dL (<200); Estimated Glomerular Filt Rate > 60; Glucose Random 83 mg/dL (60-115); HDL Cholesterol 42 mg/dL (>40); LDL Cholesterol Calculated 68 mg/dL (<100); Potassium 4.4 mmol/L (3.3-5.1); Sodium 140 mmol/L (135-145); Triglycerides 68 mg/dL (<150)
== END ==
LOC: HO.NUCMED 10:58
PROVIDERS: PCP Internal Medicine; Visit Provider Internal Medicine
DX: E21.0 Primary hyperparathyroidism (principal); E78.00 Pure hypercholesterolemia, unspecified; I10 Essential (primary) hypertension
CPT/HCPCS: 36415; 78072; 80053; 80061; A9500

== ENCOUNTER → 2024-10-17 11:20 | Outpatient (BNV) | payer MEDICAID, SELFPAY | PROVIDERS: PCP Internal Medicine; Visit Provider Radiology Diagnostic Radiology | DX: E21.3 Hyperparathyroidism, unspecified (principal) | CPT/HCPCS: 78072 ==

== ENCOUNTER → 2025-02-01 11:30 | Outpatient (BNV) | payer MEDICAID, SELFPAY | PROVIDERS: PCP Internal Medicine; Visit Provider Radiology Body Imaging | DX: Z12.31 Encounter for screening mammogram for malignant neoplasm of breast (principal) | CPT/HCPCS: 77063; 77067 ==

== ENCOUNTER 2025-02-01 11:38 | Outpatient (REF) | payer MEDICAID, SELFPAY ==
--- OUTSIDE RECORDS SUMMARY | 2025-02-01 12:31 | XMS_ITS | Patient Health Record ---
Author Organization [facility] Address [address] [place] [address] Care Team Providers Care Surgical Appliance Fitter Name Role Phone Chel Valdez Primary Care Provider Max Mcdonald Unavailable [phone] Reason For Referral No Information Medications Medication [...] Problem Screening for malignant neoplasm of colon ([id number]) Encounter for screening for malignant neoplasm of colon (Z12.11) Active confirmed Problem Iron deficiency anemia (D50.9) Active confirmed Plan Of Treatment Future Test Test Name Order Date COLONOSCOPY 09/12/2020 Insurance Providers Payer Name Payer Address Payer Phone Subscriber Number Group Number Insured Name Patient Relationship to Insured Coverage Start Date Coverage End Date [facility] [email or web address] [facility] [address] [address] [place], [place] [id number] FRANCIS, WENNONA Self - patient is the insured Medical (General) History Medical History History ICD Code Denies [place],DM,CVA,Lung disease,renal dise ase Anemia--reports neg. Hemoccu lt cards in the past. Her ferritin was only 5 in February of 2020 and her hemoglobin was 9.9 with a normal MCV in August of 2020. Surgical History Surgery Date(Month/Year) Uterine myomectomy 2011 Tonsillectomy
== END 2025-02-01 11:39 | disposition home or self-care (01) ==
LOC: HO.MAMMO 11:38
PROVIDERS: PCP Internal Medicine; Visit Provider Internal Medicine
DX: Z12.31 Encounter for screening mammogram for malignant neoplasm of breast (principal)
CPT/HCPCS: 77063; 77067

== ENCOUNTER 2025-04-19 10:34 | Outpatient (REF) | payer MEDICAID, SELFPAY ==
[2025-04-19 10:52] LABS: MANUAL DIFF FLAG NO
[2025-04-19 11:46] LABS: Hematocrit 37.1 % (37.0-47.0); Hemoglobin 11.6 g/dl (12.0-16.0); Imm Gran Abs Auto 0.00 X10*3/uL (0.00-0.03); Imm Gran Pct Auto 0.0 % (0.0-0.4); Lymphocytes Absolute Auto 1.6 X10*3/uL (1.2-4.9); Mean Corpuscular HGB Conc 31.3 g/dl (31.0-35.0); Mean Corpuscular Hemoglobin 28.5 pg (27.0-33.0); Mean Corpuscular Volume 91.2 fL (80.0-98.0); NRBC Abs Auto 0.000 X10*3/uL (0.0-0.012); NRBC Pct Auto 0.0 /100WBC (0.0-0.2); Platelet Count 207 X10*3/uL (160-400); Red Blood Count 4.07 X10*6/uL (4.20-5.50); White Blood Count 4.6 X10*3/uL (4.8-10.8)
[2025-04-19 12:21] LABS: Alanine Aminotransferase 19 U/L (0-31); Albumin Level 4.1 g/dL (3.5-5.0); Alkaline Phosphatase 130 U/L (39-117); Anion Gap 10 (12-20); Aspartate Amino Transferase 23 U/L (5-31); Blood Urea Nitrogen 15 mg/dL (9-16); Calcium 9.8 mg/dL (8.4-10.2); Carbon Dioxide 28 mmol/L (22-29); Chloride 108 mmol/L (96-108); Estimated Glomerular Filt Rate > 60; Potassium 3.9 mmol/L (3.3-5.1); Sodium 142 mmol/L (135-145); Total Protein 7.6 g/dL (6.5-8.0)
== END 2025-04-19 10:35 | disposition home or self-care (01) ==
LOC: HO.LAB 10:34
PROVIDERS: PCP Internal Medicine; Visit Provider Internal Medicine
DX: Z00.00 Encounter for general adult medical examination without abnormal findings (principal); I10 Essential (primary) hypertension; D50.9 Iron deficiency anemia, unspecified; E78.00 Pure hypercholesterolemia, unspecified; Z68.36 Body mass index [BMI] 36.0-36.9, adult
CPT/HCPCS: 36415; 80053; 85025